=== PATIENT | female | born 1985 | race American Indian/Alaskan Native ===

== ENCOUNTER 2018-10-31 06:44 | Emergency (ER) | payer MEDICAID ==
[~2018-10-31 06:44] MED LIST: LACTATED RINGERS 500 ML IV ONE
--- NOTE | 2018-10-31 07:56 | Ultrasound Report ---
PROCEDURE: US OB LIMITED TECHNIQUE: Real-time limited sonographic examination was performed for evaluation of for each fetus with image documentation (1 or more fetuses). HISTORY: wellbeing COMPARISONS: None . FINDINGS: Amniotic fluid index is 7.5 cm. Heart rate is 147 bpm. IMPRESSION: Amniotic fluid is the lower limits of normal. This document is electronically signed by Luis Metz MD., October 31 2018 07:54:37 AM ET
--- NOTE | 2018-10-31 08:38 | Ultrasound Report ---
EXAM: LIMITED US OB BPP WO NON-STRESS HISTORY: wellbeing TECHNIQUE: Guerra scale imaging, duplex Doppler and color flow Doppler imaging are performed with a cur vilinear transducer. COMPARISON: None available. FINDINGS: There is a single IUP in cephalic presentation. The estimated heart rate is 147 beats per minut e. No gross anomaly is seen at this time. The amniotic fluid index measures 7.5 cm (right upper quadrant 2.6 cm; right lower quadrant 2 cm; lef t lower quadrant 3 cm), which is within normal limits (normal range 7 to 24 cm). The ovaries are not visualized. No free fluid is seen in the pelvis. IMPRESSION: 1. Single live IUP in cephalic presentation. 2. The estimated heart rate is 147 beats per minute. 3. The amniotic fluid index measures 7.5 cm (right upper quadrant 2.6 cm; right lower quadrant 2 cm; left lower quadrant 3 cm), which is within normal limits (normal range 7 to 24 cm). This document is electronically signed by Angela Licea MD., October 31 2018 08:35:58 AM ET
--- NOTE | 2018-10-31 08:48 | Emergency Department Report ---
ED General Adult HPI - General Chief complaint: Skin/Abscess/Foreign Body Time Seen by Provider: 10/31/18 08:44 Source: patient Mode of arrival: Ambulatory Limitations: No Limitations - History of Present Illness Initial comments: Patient is a 33-year-old female at 35 weeks who presents with a boil on her tailbone for 1 week she states that the pain is an 8 out of 10 as an achy type of pain laying on her back or sitting makes it worse nothing makes it better. Patient was evaluated by her [facility] [facility] and sent to fast track. Patient denies having any vaginal leaking any vaginal fluids or any contractions. Severity scale (0 -10): 7 - Related Data Home Medications Medication Instructions Recorded Confirmed Last Taken Pnv 29-1 Tablet 1 tab PO DAILY 10/31/18 10/31/18 10/30/18 Previous Rx's Medication Instructions Recorded Last Taken Type cephALEXin [Keflex] 500 mg PO Q6HR #20 capsule 10/31/18 Unknown Rx Allergies Allergy/AdvReac Type Severity Reaction Status Date / Time No Known Allergies Allergy Verified 10/31/18 04:57 ED Review of Systems ROS: Stated complaint: Other details as noted in HPI Constitutional: denies: chills, fever Eyes: denies: eye pain, eye discharge, vision change ENT: denies: ear pain, throat pain Respiratory: denies: cough, shortness of breath, wheezing Cardiovascular: denies: chest pain, palpitations Endocrine: no symptoms reported Gastrointestinal: denies: abdominal pain, nausea, diarrhea Genitourinary: as per HPI. denies: urgency, dysuria, discharge Musculoskeletal: denies: back pain, joint swelling, arthralgia Skin: denies: rash, lesions Neurological: denies: headache, weakness, paresthesias Psychiatric: denies: anxiety, depression Hematological/Lymphatic: denies: easy bleeding, easy bruising ED Past Medical Hx - Past Medical History Previous Medical History?: Yes Hx Hypertension: No Hx Diabetes: No Hx Deep Vein Thrombosis: No Hx Renal Disease: No Hx Sickle Cell Disease: No Hx Seizures: No Hx Asthma: No Hx HIV: No - Surgical History Past Surgical History?: Yes Additional Surgical History: Right ACL - Social History Smoking Status: Never Smoker Substance Use Type: None - Medications Home Medications: Home Medications Medication Instructions Recorded Confirmed Last Taken Type Pnv 29-1 Tablet 1 tab PO DAILY 10/31/18 10/31/18 10/30/18 History cephALEXin [Keflex] 500 mg PO Q6HR #20 capsule 10/31/18 Unknown Rx ED Physical Exam - General Limitations: No Limitations General appearance: alert, in no apparent distress - Head Head exam: Present: atraumatic, normocephalic - Eye Eye exam: Present: normal appearance - ENT ENT exam: Present: mucous membranes moist - Neck Neck exam: Present: normal inspection - Respiratory Respiratory exam: Present: normal lung sounds bilaterally. Absent: respiratory distress - Cardiovascular Cardiovascular Exam: Present: regular rate, normal rhythm. Absent: systolic murmur, diastolic murmur, rubs, gallop - GI/Abdominal GI/Abdominal exam: Present: soft, normal bowel sounds - Rectal Rectal exam: Present: other (pilonidal cyst.) - Extremities Exam Extremities exam: Present: normal inspection - Back Exam Back exam: Present: normal inspection - Neurological Exam Neurological exam: Present: alert, oriented X3 - Psychiatric Psychiatric exam: Present: normal affect, normal mood - Skin Skin exam: Present: warm, dry, intact, normal color. Absent: rash ED Course Vital Signs 10/31/18 10/31/18 04:50 06:59 Temperature 98.1 F 97.3 F L Pulse Rate 83 81 Respiratory 18 16 Rate Blood Pressure 117/64 Blood Pressure 98/50 [Left] O2 Sat by Pulse 100 Oximetry - I & D Sacrum Type of Procedure: Simple Site: above the gluteal cleft Blade Size: 11 I & D Procedure: betadine prep, sterile drapes applied, sterile dressing applied Progress: Copious amounts of perulant drainage from the wound patient tolerated the procedure well. ED Medical Decision Making - Medical Decision Making Cdx: Pilonidal cyst ddx: Perinanal abscess, cellulitis I will get an incision and drainage kit and send patient home with keflex. Gave patient addtional verbal discharge instructions. Patient agrees with plan. Critical care attestation.: If time is entered above; I have spent that time in minutes in the direct care of this critically ill patient, excluding procedure time. ED Disposition Clinical Impression: Pilonidal cyst with abscess Disposition: DC-01 TO HOME OR SELFCARE Is pt being admited?: No Does the pt Need Aspirin: No Condition: Stable Instructions: Labor and Delivery General Instructions, Early Labor Signs (DC), Movement (DC), Abscess Incision and Drainage (ED) Prescriptions: cephALEXin [Keflex] 500 mg PO Q6HR #20 capsule Referrals: LUI PETTY MD [Primary Care Provider] - 7 Days Forms: [facility] Discharge Summary Print Language: INDONESIAN
[2018-10-31] MEDS ORDERED: XYLOCAINE 2% INFILTRATI ONE (09:20)
[2018-10-31 19:18] VITALS: BP 119/78
== END 2018-10-31 09:58 | disposition home or self-care (01) ==
LOC: TRG 06:44 → ED 06:44 → TRG 06:44 → EDSTATUS 06:47 → ED 09:58
DX: O26.893 Other specified pregnancy related conditions, third trimester (principal); L05.01 Pilonidal cyst with abscess; Z3A.35 35 weeks gestation of pregnancy
CPT/HCPCS: 10080; 59025; 76815; 76819; 99283; J7120